=== PATIENT | female | born 1975 | race Caucasian/White ===

== ENCOUNTER 2021-09-02 20:04 | Emergency (ER) | payer BC | END 2021-09-02 20:38 | disposition home or self-care (01) | LOC: FB.ED 20:04 | DX: S05.01XA Injury of conjunctiva and corneal abrasion without foreign body, right eye, initial encounter (principal); W22.8XXA Striking against or struck by other objects, initial encounter; Y99.0 Civilian activity done for income or pay | CPT/HCPCS: 99282; 99283 ==